=== PATIENT | female | born 1990 | race Caucasian/White ===

== ENCOUNTER 2016-03-01 17:39 | Emergency (ER) | payer MEDICAID ==
[~2016-03-01] VITALS: Ht 160 cm; Wt 56.0 kg
[2016-03-01 17:48] VITALS: BP 110/56; PULSE 68; RESP 16; TEMP 98.7; O2SAT 98
--- NOTE | 2016-03-01 18:20 | PD ---
Physical Exam Time Seen by Provider: 18:17 Narrative 26 YEAR OLD FEMALE WHO STATES SHE IS 13 WEEKS GESTATION PRESENTS TO ED FOR EVALUATION OF CRAMPING IN HER EPIGASTRIC AREA THAT BEGAN AROUND 5PM TODAY. RATES PAIN 7/10. NO N/V. NO FEVER OR CHILLS. NO VAGINAL BLEEDING OR DISCHARGE. PT SEES DR CRUZ. PT HAS NOT FELT BABY MOVE. PT WITH DECREASED U/O TODAY. THINKS SHE MIGHT BE DEHYDRATED. PT STATES SHE IS RH+ Data Data Last Documented VS Vital Signs Date Time Temp Pulse Resp B/P Pulse Ox O2 Delivery O2 Flow Rate FiO2 03/01/16 17:48 98.7 68 16 110/56 98 Room Air Orders Urinalysis - C+S If Indicated (03/01/16 18:20) Complete Blood Count With Diff (03/01/16 18:20) Comprehensive Metabolic Panel (03/01/16 18:20) Beta Hcg (Quant/Titer) (03/01/16 18:20) Lipase (03/01/16 18:20) Labs Laboratory Tests Test 03/01/16 03/01/16 18:25 18:40 Urine Color LIGHT-YELLOW Urine Turbidity HAZY Urine pH 6.0 Urine Specific [place] 1.006 Urine Protein NEG mg/dL Urine Glucose (UA) NEG mg/dL Urine Ketones NEG mg/dL Urine Occult Blood NEG Urine Nitrite NEG Urine Bilirubin NEG Urine Urobilinogen LESS THAN 2.0 MG/DL Urine Leukocyte Esterase LARGE Urine RBC 2 /hpf Urine WBC 2 /hpf Urine Squamous Epithelial 7 /hpf Cells Urine Hyaline Casts 1 /lpf Microscopic Urinalysis Comment CULT NOT INDICATED White Blood Count 9.6 TH/MM3 Red Blood Count 4.56 MIL/MM3 Hemoglobin 13.4 GM/DL Hematocrit 39.3 % Mean Corpuscular Volume 86.2 FL Mean Corpuscular Hemoglobin 29.4 PG Mean Corpuscular Hemoglobin 34.1 % Concent Red Cell Distribution Width 13.3 % Platelet Count 205 TH/MM3 Mean Platelet Volume 8.3 FL Neutrophils (%) (Auto) 69.5 % Lymphocytes (%) (Auto) 21.2 % Monocytes (%) (Auto) 6.4 % Eosinophils (%) (Auto) 2.5 % Basophils (%) (Auto) 0.4 % Neutrophils # (Auto) 6.7 TH/MM3 Lymphocytes # (Auto) 2.0 TH/MM3 Monocytes # (Auto) 0.6 TH/MM3 Eosinophils # (Auto) 0.2 TH/MM3 Basophils # (Auto) 0.0 TH/MM3 CBC Comment DIFF FINAL Differential Comment Sodium Level 134 MEQ/L Potassium Level 3.6 MEQ/L Chloride Level 101 MEQ/L Carbon Dioxide Level 22.6 MEQ/L Anion Gap 10 MEQ/L Blood Urea Nitrogen 14 MG/DL Creatinine 0.54 MG/DL Estimat Glomerular Filtration 134 ML/MIN Rate Random Glucose 99 MG/DL Calcium Level 9.1 MG/DL Total Bilirubin 0.4 MG/DL Aspartate Amino Transf 14 U/L (AST/SGOT) Alanine Aminotransferase 18 U/L (ALT/SGPT) Alkaline Phosphatase 94 U/L Total Protein 7.5 GM/DL Albumin 3.5 GM/DL Lipase 182 U/L Human Chorionic Gonadotropin, [address] MIU/ML Quant MDM Medical Record Reviewed: Yes Supervised Visit with MARSHA: No Narrative Course PT APPEARS OVERALL WELL. VSS. WORKUP INITIATED IN TRIAGE. Scripts No Active Prescriptions or Reported Meds Condition: Stable Juju Joseph Mar 01, 2016 18:19
[2016-03-01 19:17] LABS: BLOOD, URINE NEG (NEG); COMMENT (UR) CULT NOT INDICATED; CULTURE IF INDICATED CULT NOT INDICATED; GLUCOSE,URINE NEG (NEG); HYALINE CAST, URINE 1 /lpf (RARE); KETONE, URINE NEG (NEG); NITRITE,URINE NEG (NEG); SQUAMOUS EPITHELIAL CELL URINE 7 /hpf (0-5); URINE COLOR LIGHT-YELLOW (YELLW/STRAW)
[2016-03-01 19:25] LABS: AUTOMATED NEUTROPHIL # 6.7 TH/MM3 (1.8-7.7); BASOPHIL % 0.4 % (0.0-2.0); EOSINOPHIL # 0.2 TH/MM3 (0-0.4); EOSINOPHIL % 2.5 % (0.0-4.0); HEMATOCRIT 39.3 % (35.0-46.0); HEMO FLAGS DIFF FINAL; LYMPH % 21.2 % (9.0-44.0); MEAN CELL VOLUME 86.2 FL (80.0-100.0); MEAN CORPUSCULAR HEMOGLOBIN 29.4 PG (27.0-34.0); MEAN CORPUSCULAR HGB CONC 34.1 % (32.0-36.0); MONO % 6.4 % (0.0-8.0); NEUT % 69.5 % (16.0-70.0); PLATELET COUNT 205 TH/MM3 (150-450); RED BLOOD COUNT 4.56 MIL/MM3 (4.00-5.30); RED CELL DISTRIBUTION WIDTH 13.3 % (11.6-17.2); WHITE BLOOD COUNT 9.6 TH/MM3 (4.0-11.0)
[2016-03-01 19:46] LABS: ANION GAP 10 MEQ/L (5-15); AST (GOT) 14 U/L (15-37); BICARBONATE 22.6 MEQ/L (21.0-32.0); BLOOD UREA NITROGEN 14 MG/DL (7-18); CHLORIDE 101 MEQ/L (98-107); GLOMERULAR FILTRATION RATE 134 ML/MIN (>89); POTASSIUM 3.6 MEQ/L (3.5-5.1); SODIUM (NA) 134 MEQ/L (136-145)
[2016-03-01 20:04] LABS: ALKALINE PHOSPHATASE 94 U/L (45-117); ALT (GPT) 18 U/L (10-53); BETA HCG QUANT 50974 MIU/ML (0-5); TOTAL BILIRUBIN ADULT 0.4 MG/DL (0.2-1.0)
== END 2016-03-01 21:21 | disposition left against medical advice (07) ==
LOC: NED 17:39
DX: O26.91 Pregnancy related conditions, unspecified, first trimester (principal); Z3A.13 13 weeks gestation of pregnancy; R10.13 Epigastric pain
CPT/HCPCS: 80053; 81001; 83690; 84702; 85025; 99281

== ENCOUNTER 2016-03-03 08:58 | Emergency (ER) | payer MEDICAID ==
[~2016-03-03] VITALS: Ht 160 cm; Wt 55.0 kg
[2016-03-03 08:59] VITALS: BP 111/78; PULSE 91; RESP 16; TEMP 97.8; O2SAT 99
--- NOTE | 2016-03-03 09:36 | PD ---
HPI Chief Complaint: Cold / Flu Symptoms Time Seen by Provider: 09:36 Travel History International Travel<30 days: No Contact w/Intl Traveler<30days: No Traveled to known affect area: No History of Present Illness HPI 26-year-old female came to the emergency room with history of flulike symptoms. Says she has been coughing, body aches, nausea and vomiting,. Patient is 13 weeks . She says she has been cramping in her abdomen as well. No spotting. She has not been drinking water as much as she should. He had her OB checkup done last week when an ultrasound was done as well. She said she was told that the fetus was doing well. Vital signs are stable. FORMERLY [facility], [facility] Past Medical History Narrative Medical List of her past medical history is reviewed from the nursing note. ?: LMP: 12/02/15 Social History Tobacco Use: No Allergies-Medications (Allergen,Severity, Reaction): Coded Allergies: No Known Allergies (Verified , 03/03/16) Comments No known drug allergies. Reported Meds & Prescriptions Reported Meds & Active Scripts Active No Active Prescriptions or Reported Medications Narrative Medication List of her home medications reviewed from the nursing note. Review of Systems Except as stated in HPI: all other systems reviewed are Neg Physical Exam Narrative GENERAL: Awake, alert, moderate distress SKIN: Warm and dry. HEAD: Atraumatic. Normocephalic. EYES: Pupils equal and round. No scleral icterus. No injection or drainage. ENT: No nasal bleeding or discharge. Mucous membranes pink and moist. NECK: Trachea midline. No JVD. CARDIOVASCULAR: Regular rate and rhythm. No murmur appreciated. RESPIRATORY: No accessory muscle use. Clear to auscultation. Breath sounds equal bilaterally. GASTROINTESTINAL: Abdomen soft, non-tender, nondistended. Hepatic and splenic margins not palpable. MUSCULOSKELETAL: No obvious deformities. No clubbing. No cyanosis. No edema. NEUROLOGICAL: Awake and alert. No obvious cranial nerve deficits. Motor grossly within normal limits. Normal speech. PSYCHIATRIC: Appropriate mood and affect; insight and judgment normal. Data Data Last Documented VS Vital Signs Date Time Temp Pulse Resp B/P Pulse Ox O2 Delivery O2 Flow Rate FiO2 03/03/16 12:00 74 16 105/54 97 Room Air 03/03/16 08:59 97.8 Orders Complete Blood Count With Diff (03/03/16 09:38) Basic Metabolic Panel (Bmp) (03/03/16 09:38) Urinalysis - C+S If Indicated (03/03/16 09:38) Influenzae A/B Antigen (03/03/16 09:38) Blood Culture (03/03/16 09:38) Iv Access Insert/Monitor (03/03/16 09:38) Ecg Monitoring (03/03/16 09:38) Oximetry (03/03/16 09:38) Oxygen Administration (03/03/16 09:38) Sodium Chloride 0.9% Flush (Ns Flush) (03/03/16 09:45) Creatine Kinase (Cpk) (03/03/16 09:38) Sodium Chlor 0.9% 1000 Ml Inj (Ns 1000 M (03/03/16 09:45) Sodium Chlor 0.9% 1000 Ml Inj (Ns 1000 M (03/03/16 09:45) Lactic Acid (03/03/16 09:42) Acetaminophen (Tylenol) (03/03/16 09:45) Labs Laboratory Tests Test 03/03/16 03/03/16 03/03/16 10:00 10:10 10:16 Urine Color LIGHT-YELLOW Urine Turbidity HAZY Urine pH 6.0 Urine Specific [place] 1.008 Urine Protein NEG mg/dL Urine Glucose (UA) NEG mg/dL Urine Ketones NEG mg/dL Urine Occult Blood NEG Urine Nitrite NEG Urine Bilirubin NEG Urine Urobilinogen LESS THAN 2.0 MG/DL Urine Leukocyte Esterase SMALL Urine RBC 1 /hpf Urine WBC 1 /hpf Urine Squamous Epithelial 11 /hpf Cells Urine Bacteria RARE /hpf Microscopic Urinalysis Comment CULT NOT INDICATED White Blood Count 4.3 TH/MM3 Red Blood Count 4.70 MIL/MM3 Hemoglobin 13.9 GM/DL Hematocrit 39.9 % Mean Corpuscular Volume 84.8 FL Mean Corpuscular Hemoglobin 29.5 PG Mean Corpuscular Hemoglobin 34.9 % Concent Red Cell Distribution Width 13.7 % Platelet Count 155 TH/MM3 Mean Platelet Volume 8.1 FL Neutrophils (%) (Auto) 75.3 % Lymphocytes (%) (Auto) 12.2 % Monocytes (%) (Auto) 10.6 % Eosinophils (%) (Auto) 1.7 % Basophils (%) (Auto) 0.2 % Neutrophils # (Auto) 3.2 TH/MM3 Lymphocytes # (Auto) 0.5 TH/MM3 Monocytes # (Auto) 0.5 TH/MM3 Eosinophils # (Auto) 0.1 TH/MM3 Basophils # (Auto) 0.0 TH/MM3 CBC Comment DIFF FINAL Differential Comment Sodium Level 133 MEQ/L Potassium Level 3.9 MEQ/L Chloride Level 101 MEQ/L Carbon Dioxide Level 23.7 MEQ/L Anion Gap 8 MEQ/L Blood Urea Nitrogen 7 MG/DL Creatinine 0.60 MG/DL Estimat Glomerular Filtration 119 ML/MIN Rate Random Glucose 85 MG/DL Calcium Level 8.5 MG/DL Total Creatine Kinase 48 U/L Lactic Acid Level 0.7 mmol/L MDM Medical Decision Making Medical Screen Exam Complete: Yes Emergency Medical Condition: Yes Medical Record Reviewed: Yes Differential Diagnosis Influenza, sepsis, UTI Narrative Course 11:20 AM all the blood test results and urinalysis are back and within normal limit. Lactic acid and influenza is negative. Patient was given 1 L of IV fluid bolus. At this point I will discharge her and have her follow up with her OB. Procedures EKG Prior to Arrival: No Diagnosis Primary Impression: Viral illness Additional Impression: Qualified Code: Z3A.13 - 13 weeks gestation of Referrals: Primary Care Physician 2 days Additional Instructions: Please return to the ER if the condition worsens or any other new concerns. Drink lots of fluid especially like Gatorade. Follow-up with your OB in next couple days. Med/Other Pt SpecificInfo: No Change to Meds Scripts No Active Prescriptions or Reported Meds Disposition: 01 DISCHARGE HOME Condition: Prashanth Gutiérrez MD Mar 03, 2016 09:36 Condition: Prashanth Gutiérrez MD Mar 03, 2016 09:36
[2016-03-03] MEDS ORDERED: ACETAMINOPHEN 325 MG TAB PO ONE (09:45)
[2016-03-03] MEDS ORDERED: SODIUM CHLOR 0.9% 1000 ML INJ 1,000 ML IV ONE ×2 (09:45)
[2016-03-03] MEDS ORDERED: SODIUM CHLORIDE 0.9% FLUSH 5 ML FLUSH IVF PRN (09:45)
[2016-03-03 10:50] LABS: AUTOMATED NEUTROPHIL # 3.2 TH/MM3 (1.8-7.7); BASOPHIL % 0.2 % (0.0-2.0); EOSINOPHIL # 0.1 TH/MM3 (0-0.4); EOSINOPHIL % 1.7 % (0.0-4.0); HEMATOCRIT 39.9 % (35.0-46.0); HEMO FLAGS DIFF FINAL; LYMPH % 12.2 % (9.0-44.0); LYMPHOCYTE # 0.5 TH/MM3 (1.0-4.8); MEAN CELL VOLUME 84.8 FL (80.0-100.0); MEAN CORPUSCULAR HEMOGLOBIN 29.5 PG (27.0-34.0); MEAN CORPUSCULAR HGB CONC 34.9 % (32.0-36.0); MONO % 10.6 % (0.0-8.0); NEUT % 75.3 % (16.0-70.0); PLATELET COUNT 155 TH/MM3 (150-450); RED CELL DISTRIBUTION WIDTH 13.7 % (11.6-17.2); WHITE BLOOD COUNT 4.3 TH/MM3 (4.0-11.0)
[2016-03-03 10:50] LABS: BACTERIA, URINE RARE /hpf; BLOOD, URINE NEG (NEG); GLUCOSE,URINE NEG (NEG); KETONE, URINE NEG (NEG); NITRITE,URINE NEG (NEG); SQUAMOUS EPITHELIAL CELL URINE 11 /hpf (0-5); URINE COLOR LIGHT-YELLOW (YELLW/STRAW)
[2016-03-03 10:53] LABS: COMMENT (UR) CULT NOT INDICATED; CULTURE IF INDICATED CULT NOT INDICATED
[2016-03-03 10:58] LABS: BICARBONATE 23.7 MEQ/L (21.0-32.0); POTASSIUM 3.9 MEQ/L (3.5-5.1)
[2016-03-03 12:00] VITALS: BP 105/54; PULSE 74; RESP 16; O2SAT 97
== END 2016-03-03 12:10 | disposition home or self-care (01) ==
LOC: NEPC 08:58
DX: O26.92 Pregnancy related conditions, unspecified, second trimester (principal); B34.9 Viral infection, unspecified; Z3A.13 13 weeks gestation of pregnancy
CPT/HCPCS: 80048; 81001; 82550; 83605; 85025; 87040; 87205; 87804; 96360; 99284; J7030

== ENCOUNTER → 2016-07-05 | Outpatient (CLI) | payer MEDICAID | LOC: HPND 09:54 | PROVIDERS: ATTEND Obstetrics & Gynecology | DX: O35.8XX0 Maternal care for other (suspected) fetal abnormality and damage, not applicable or unspecified (principal); O44.40 Low lying placenta NOS or without hemorrhage, unspecified trimester; Z3A.00 Weeks of gestation of pregnancy not specified | CPT/HCPCS: 76811; 76817 ==

== ENCOUNTER 2016-07-27 08:12 | Emergency (ER) | payer MEDICAID ==
[2016-07-27] VITALS (11 sets, daily range): PULSE 58–78
[2016-07-27 09:10] LABS: BLOOD, URINE NEG (NEG); COMMENT (UR) CULT NOT INDICATED; CULTURE IF INDICATED CULT NOT INDICATED; GLUCOSE,URINE TRACE mg/dL (NEG); KETONE, URINE NEG (NEG); MUCUS URINE FEW /lpf (OCC); NITRITE,URINE NEG (NEG); SQUAMOUS EPITHELIAL CELL URINE 2 /hpf (0-5); URINE COLOR LIGHT-YELLOW (YELLW/STRAW)
--- NOTE | 2016-07-27 11:07 | MB ---
cc: Sarah CRUZ DATE OF CONSULTATION 07/27/2016 HISTORY OF PRESENT ILLNESS This is a 26-year-old white female para 3-0-0-3 whose last menstrual period and early ultrasound put her at 32 weeks and six days. She awoke this morning and when she got out of bed she noticed she was having some sharp back pain and left lower quadrant pain. She denies any vaginal bleeding, constipation, micturition problems. She came to the emergency room for evaluation. All her other babies were born at term. She did mow the lawn two days ago. She denies any contractions, leakage of fluid or vaginal bleeding. PAST OB HISTORY She is para 3-0-0-3. She had three term deliveries without difficulty. PAST GYNECOLOGIC HISTORY She has ascus on her Pap. We are going to repeat that . PAST SURGICAL HISTORY Remarkable for tonsillectomy as a child. 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 She is two swabs collected. SOCIAL HISTORY She is a never smoker. She is . She does not drink alcohol or take drugs. FAMILY HISTORY Remarkable for high blood pressure. ALLERGIES NO KNOWN DRUG ALLERGIES. MEDICATIONS Her current medications are vitamins one p.o. q. Day. REVIEW OF SYSTEMS She denies headaches, scotoma. She denies any shortness of breath, coughing, chronic cough, upper respiratory infection. She denies any chest pressure or pain. She reports good movement. She has no constipation, diarrhea or mucus in her stools. Her micturition pattern is normal without any dysuria or hematuria. PHYSICAL EXAM This is a well-developed, well-nourished female laying comfortably in bed. VITAL SIGNS: Her blood pressure is 120/59, pulse is 76. She is afebrile. HEENT: Normocephalic, atraumatic. NECK: Supple. Trachea is in the midline. There is no thyromegaly or adenopathy. CHEST: Clear to auscultation. HEART: The heart has regular rate and rhythm without murmur. ABDOMEN: The abdomen is soft and nontender. The fundus is nontender. The left lower quadrant over the round ligament is +1 to +2 tender. There is no rebound. Bowel sounds are normal. BACK: She has some paraspinal muscle tenderness bilaterally, left more than right. There is no CVA tenderness. EXTREMITIES: There is no clubbing, cyanosis, edema. There are no cords. LABORATORY WORKUP Her urinalysis is pending. ASSESSMENT/PLAN 1. Musculoskeletal: Left lower quadrant and back pain. Advised her to take it easy. I have offered her some muscle relaxants and Tylenol. The pain has pretty much resolved at this point. She does not even want the Tylenol I will hydrate her and monitor the baby and make sure we have a reactive strip. 2. Low-lying placenta. Her placenta was 20 mm away from the os a month ago. We will repeat that. 3. MRSA carrier. She has had both swabs collected and will address that when she goes into labor. 4. Ascus on Pap. We will repeat her Pap . R. MD JEANNINE Palmer/SANDRA /9:00 AM /10:56 AM
== END 2016-07-27 11:24 | disposition home or self-care (01) ==
LOC: HOBED 08:12
DX: O26.93 Pregnancy related conditions, unspecified, third trimester (principal); M54.5 Low back pain; O44.43 Low lying placenta NOS or without hemorrhage, third trimester; Z22.322 Carrier or suspected carrier of Methicillin resistant Staphylococcus aureus; Z3A.32 32 weeks gestation of pregnancy
CPT/HCPCS: 81001; 99282

== ENCOUNTER → 2016-08-08 | Outpatient (CLI) | payer MEDICAID | LOC: HPND 12:52 | PROVIDERS: ATTEND Obstetrics & Gynecology | DX: O44.43 Low lying placenta NOS or without hemorrhage, third trimester (principal); Z3A.34 34 weeks gestation of pregnancy | CPT/HCPCS: 76816; 76817 ==

== ENCOUNTER 2016-09-08 06:02 | Inpatient (IN) | payer MEDICAID ==
[2016-09-08] VITALS (18 sets, daily range): BP systolic 102–131; BP diastolic 61–85; PULSE 58–92; RESP 14–18; TEMP 97.8–98.2
[~2016-09-08] VITALS: Ht 160 cm; Wt 74.4 kg
[2016-09-08] MEDS ORDERED: MINERAL OIL 10 ML VIAL TOPICAL PRN (06:30)
[2016-09-08] MEDS ORDERED: LIDOCAINE HCL 1% 50 ML VIAL INFIL PRN (06:30)
[2016-09-08] MEDS ORDERED: OXYTOCIN 30 UNITS 500ML PREMIX IV ONE (06:30)
[2016-09-08] MEDS ORDERED: CITRIC ACID-SODIUM CITRATE LIQ 30 ML UDC PO SCH (06:45)
[2016-09-08] MEDS ORDERED: NS 500 ML BOLUS IV PRN (06:45)
[2016-09-08] MEDS ORDERED: ONDANSETRON HCL 4 MG/2 ML VIAL IV PRN (06:45)
[2016-09-08] MEDS ORDERED: LACTATED RINGER'S 1000 ML BOLUS IV PRN (06:45)
[2016-09-08] MEDS ORDERED: LIDOCAINE HCL 1% 50 ML VIAL I-DERMAL PRN (06:45)
[2016-09-08] MEDS ORDERED: LACTATED RINGER'S 1000 ML IV SCH (06:45)
[2016-09-08] MEDS ORDERED: NS 1000 ML IV PRN (06:45)
[2016-09-08 07:11] LABS: BLOOD, URINE NEG (NEG); COMMENT (UR) CULT NOT INDICATED; CULTURE IF INDICATED CULT NOT INDICATED; GLUCOSE,URINE NEG (NEG); KETONE, URINE NEG (NEG); MUCUS URINE FEW /lpf (OCC); NITRITE,URINE NEG (NEG); PH, URINE 6.5 (5.0-8.5); SQUAMOUS EPITHELIAL CELL URINE <1 /hpf (0-5); URINE COLOR LIGHT-YELLOW (YELLW/STRAW)
[2016-09-08 07:13] LABS: AUTOMATED NEUTROPHIL # 7.1 TH/MM3 (1.8-7.7); BASOPHIL % 0.3 % (0.0-2.0); EOSINOPHIL # 0.2 TH/MM3 (0-0.4); EOSINOPHIL % 1.8 % (0.0-4.0); HEMATOCRIT 34.5 % (35.0-46.0); HEMO FLAGS DIFF FINAL; LYMPH % 21.2 % (9.0-44.0); LYMPHOCYTE # 2.2 TH/MM3 (1.0-4.8); MEAN CELL VOLUME 86.5 FL (80.0-100.0); MEAN CORPUSCULAR HEMOGLOBIN 29.6 PG (27.0-34.0); MEAN CORPUSCULAR HGB CONC 34.2 % (32.0-36.0); MONO % 6.9 % (0.0-8.0); NEUT % 69.8 % (16.0-70.0); PLATELET COUNT 194 TH/MM3 (150-450); RED BLOOD COUNT 3.99 MIL/MM3 (4.00-5.30); RED CELL DISTRIBUTION WIDTH 12.8 % (11.6-17.2); WHITE BLOOD COUNT 10.2 TH/MM3 (4.0-11.0)
[2016-09-08] MEDS ORDERED: PENICILLIN G POT 5,000,000 UNITS/NS 100 ML (Mini-Bag Plus) IV ONE ×2 (07:30)
--- NOTE | 2016-09-08 11:22 | PD.OB.DELI ---
Delivery Date: Sep 08, 2016 Anesthesia: None Episiotomy: None Vaginal Delivery: Normal Presentation: Occiput anterior Nuchal Cord: None Delayed cord clamping (45 sec): Yes Infant: Female One Minute : 7 Five Minute : 9 Weight: 8/4 Placenta: Spontaneous delivery, Intact, 3 vessel cord Laceration: No lacerations Estimated blood loss: 300 Additional Information precip delivery of Abriella Delivered by Dr Archuleta Small periurethral tear not bleeding Sarah Cannon MD Sep 08, 2016 11:22
[2016-09-08] MEDS ORDERED: PENICILLIN G POT 2,500,000 UNITS/NS 100 ML IV SCH ×2 (11:30)
[2016-09-08] MEDS ORDERED: OXYTOCIN 30 UNITS-500ML PREMIX 500 ML IV ONE (11:30)
[2016-09-08] MEDS ORDERED: DOCUSATE SODIUM 50 MG/SENNA 8.6 MG TAB PO PRN (11:30)
[2016-09-08] MEDS ORDERED: WITCH HAZEL 50%/GLYCERIN 12.5% 40 PAD JAR TOPICAL PRN (11:30)
[2016-09-08] MEDS ORDERED: ALUMINUM/MAGNESIUM/SIMETH 30 ML CUP PO PRN (11:30)
[2016-09-08] MEDS ORDERED: SODIUM CHLORIDE 0.9% FLUSH 10 ML FLUSH IV FLUSH PRN (11:30)
[2016-09-08] MEDS ORDERED: OXYTOCIN 30 UNITS-500ML PREMIX 500 ML IV SCH (11:30)
[2016-09-08] MEDS ORDERED: ONDANSETRON ODT 4 MG TAB PO PRN (11:30)
[2016-09-08] MEDS ORDERED: ZOLPIDEM TARTRATE 5 MG TAB PO PRN (11:30)
[2016-09-08] MEDS ORDERED: oxyCODONE/ACETAMINOPHEN 5 MG/325 MG TAB PO PRN ×2 (11:30)
[2016-09-08] MEDS ORDERED: IBUPROFEN 600 MG TAB PO PRN (11:30)
[2016-09-08] MEDS ORDERED: KETOROLAC TROMETHAMINE 30 MG/ML (IVP) VIAL IV PUSH ONE (11:30)
[2016-09-08] MEDS ORDERED: BENZOCAINE 20% TOPICAL SPRAY 60 ML CAN TOPICAL PRN (11:30)
[2016-09-08] MEDS ORDERED: ACETAMINOPHEN 325 MG TAB PO PRN (11:30)
--- NOTE | 2016-09-08 12:26 | HHI.HP ---
HPI Chief Complaint term iup for induction Date Seen: Sep 08, 2016 Travel History International Travel<30 Days: No Contact w/Intl Traveler<30Days: No Known Affected Area: No History of Present Illness HPI pt 26 year old female at 39 weeks for induction of labor. sve 3 +c. she denies regular contraction, bleeding or leaking. + movement. GBS + Para: 3 : 4 Miscarriage: 0 : 0 History Past Medical History Narrative Medical HS OF MRSA (TWO NEGATIVE NASAL SWABS OBTAINED WITH ) PAP ASCUS 2016 Medical History: Denies Significant Hx Obstetric History Obstetric History GBS + PARA 3 VAGINAL DELIVERIES Past Surgical History Narrative Surgical TONSILLECTOMY Family History Narrative Family History MOTHER INCREASED BP Social History Alcohol Use: No Tobacco Use: No Substance Abuse: No Allergies-Medications (Allergen,Severity, Reaction): Coded Allergies: No Known Allergies (Verified , 09/08/16) Home Meds No Active Prescriptions or Reported Meds Review of Systems Except as stated in HPI: all other systems reviewed are Neg Physical Exam Vital Signs Date Time Temp Pulse Resp B/P Pulse Ox O2 Delivery O2 Flow Rate FiO2 09/08/16 11:58 18 09/08/16 11:47 92 125/79 09/08/16 11:45 18 09/08/16 11:31 69 105/85 09/08/16 11:30 98.2 09/08/16 11:30 18 09/08/16 11:20 70 102/79 09/08/16 09:45 16 09/08/16 09:00 18 09/08/16 08:35 66 131/84 09/08/16 07:30 97.9 09/08/16 06:45 18 09/08/16 06:37 86 119/61 Narrative GENERAL: Well-nourished, well-developed patient. SKIN: Warm and dry. HEAD: Normocephalic and atraumatic. EYES: No scleral icterus. No injection or drainage. ENT: No nasal drainage noted. Mucous membranes pink. Airway patent. CARDIOVASCULAR: Regular rate and rhythm without murmurs, gallops, or rubs. RESPIRATORY: Breath sounds equal bilaterally. No accessory muscle use.. ABDOMEN/GI: Abdomen soft, non-tender, bowel sounds present, no rebound, GENITOURINARY: External Genitalia: intact and normal in appearance Cervix: POST Dilatation: 3 Membranes: [intact Uterine Contractions: [-] EXTREMITIES: No cyanosis or edema. NEUROLOGICAL: Awake and alert. Motor and sensory grossly within normal limits. Five out of 5 muscle strength in all muscle groups. Normal speech. Data Data Vital Signs Reviewed: Yes Orders Complete Blood Count With Diff (09/08/16 06:27) Hold Clot (09/08/16 06:27) Abo/Rh Blood Type (09/08/16 06:27) Urinalysis - C+S If Indicated (09/08/16 06:27) Resp Oxygen Non Rebreathe Mask (09/08/16 ) Lactated Ringer's 1000 Ml Inj (Lr 1000 M (09/08/16 06:45) Lactated Ringer's 1000 Ml Inj (Lr 1000 M (09/08/16 06:45) Sodium Chlorid 0.9% 500 Ml Inj (Ns 500 M (09/08/16 06:45) Sodium Chlor 0.9% 1000 Ml Inj (Ns 1000 M (09/08/16 06:45) Lidocaine 1% Inj (50 Ml) (Xylocaine 1% I (09/08/16 06:45) Citric Acid-Sodium Citrate Liq (Bicitra (09/08/16 06:45) Ondansetron Inj (Zofran Inj) (09/08/16 06:45) Fentanyl Inj (Fentanyl Inj) (09/08/16 06:30) Fentanyl Inj (Fentanyl Inj) (09/08/16 06:30) Oxytocin 30 Units-500ml Premix (Pitocin (09/08/16 06:30) Lidocaine 1% Inj (50 Ml) (Xylocaine 1% I (09/08/16 06:30) Light Mineral Oil (Muri-Lube Oil) (09/08/16 06:30) Penicillin G Potassium Inj (Pfizerpen-G (09/08/16 07:30) Penicillin G Potassium Inj (Pfizerpen-G (09/08/16 11:30) Ketorolac Inj (Toradol Inj) (09/08/16 11:30) Oxytocin 30 Units-500ml Premix (Pitocin (09/08/16 11:30) Vital Signs (Adult) .QSHIFT (09/08/16 11:24) Activity Oob Ad Afsaneh (09/08/16 11:24) Ice / Cold Pack PRN (09/08/16 11:24) Discontinue Iv (09/08/16 11:24) Sitz Bath PRN (09/08/16 11:24) ^ Massage (09/08/16 11:24) ^ Rhogam (09/08/16 11:24) Urinary Catheter Management .PRN (09/08/16 11:24) Diet Regular Basic (09/08/16 Lunch) Sodium Chloride 0.9% Flush (Ns Flush) (09/08/16 21:00) Sodium Chloride 0.9% Flush (Ns Flush) (09/08/16 11:30) Oxytocin 30 Units-500ml Premix (Pitocin (09/08/16 11:30) Acetaminophen (Tylenol) (09/08/16 11:30) Ibuprofen (Motrin) (09/08/16 11:30) Oxycodone-Acetamin 5-325 Mg (Percocet (09/08/16 11:30) Oxycodone-Acetamin 5-325 Mg (Percocet (09/08/16 11:30) Benzocaine 20% Top Spr (Americaine 20% T (09/08/16 11:30) Witch Pily-Glycerin Pad (Tucks Pads) (09/08/16 11:30) Docusate Sodium-Senna (Yudith-Colace) (09/08/16 11:30) Zolpidem (Ambien) (09/08/16 11:30) Ukaxpha-Wmulc-Cupqrrn Inj (M-M-R Ii Inj) (09/08/16 16:00) Wxbo-Xyw-Zltkot (Booster) Inj (Boostrix (09/08/16 16:00) Al-Mag Hy-Si 40-40-4 Mg/Ml Liq (Mag-Al P (09/08/16 11:30) Ondansetron Odt (Zofran Odt) (09/08/16 11:30) Labs Laboratory Tests Test 09/08/16 09/08/16 06:20 06:40 Urine Color LIGHT-YELLOW Urine Turbidity CLEAR Urine pH 6.5 Urine Specific [place] 1.006 Urine Protein NEG Urine Glucose (UA) NEG Urine Ketones NEG Urine Occult Blood NEG Urine Nitrite NEG Urine Bilirubin NEG Urine Urobilinogen LESS THAN 2.0 Urine Leukocyte Esterase NEG Urine RBC LESS THAN 1 Urine WBC 1 Urine Squamous Epithelial <1 Cells Urine Mucus FEW Microscopic Urinalysis Comment CULT NOT INDICATED White Blood Count 10.2 Red Blood Count 3.99 Hemoglobin 11.8 Hematocrit 34.5 Mean Corpuscular Volume 86.5 Mean Corpuscular Hemoglobin 29.6 Mean Corpuscular Hemoglobin 34.2 Concent Red Cell Distribution Width 12.8 Platelet Count 194 Mean Platelet Volume 8.3 Neutrophils (%) (Auto) 69.8 Lymphocytes (%) (Auto) 21.2 Monocytes (%) (Auto) 6.9 Eosinophils (%) (Auto) 1.8 Basophils (%) (Auto) 0.3 Neutrophils # (Auto) 7.1 Lymphocytes # (Auto) 2.2 Monocytes # (Auto) 0.7 Eosinophils # (Auto) 0.2 Basophils # (Auto) 0.0 CBC Comment DIFF FINAL Differential Comment Blood Type A POSITIVE Band and Hold Assessment/Plan Problem List: (1) Term Plan: INDUCTION OF LABOR Assessment and Plan 39 WEEK IUP AROM PITOCIN INDUCTION TREATMENT OF GBS PLANNING FOR Discharge Planning IN 1-2 DAYS Attending Attestation PT SEEN WITH Georgette Webster Sep 08, 2016 12:26
[2016-09-08] MEDS ORDERED: DIPHTH/TETANUS/ACEL PERTUSSIS (BOOSTER) 0.5 ML VIAL/PFS IM ONE (16:00)
[2016-09-08] MEDS ORDERED: MEASLES, MUMPS, RUBELLA VACCINE 0.5 ML VIAL SQ ONE (16:00)
[2016-09-09 08:00] VITALS: BP 106/65; PULSE 70; RESP 16; TEMP 98
[2016-09-09] MEDS: SODIUM CHLORIDE 0.9% FLUSH 10 ML FLUSH IV FLUSH SCH (08:38)
--- NOTE | 2016-09-09 11:08 | HHI.OB ---
Subjective Post Day: 1 Remarks no complaints, desires discharge today Objective Vitals/I&O Vital Signs Date Time Temp Pulse Resp B/P Pulse Ox O2 Delivery O2 Flow Rate FiO2 09/09/16 08:00 98.0 70 16 09/09/16 08:00 106/65 09/08/16 19:33 98.2 16 09/08/16 19:33 71 115/67 09/08/16 15:00 97.8 14 09/08/16 15:00 60 112/68 09/08/16 13:06 67 110/67 09/08/16 12:31 63 110/71 09/08/16 12:15 58 122/77 09/08/16 12:15 18 09/08/16 12:00 61 120/85 09/08/16 11:58 18 09/08/16 11:47 92 125/79 09/08/16 11:45 18 09/08/16 11:31 69 105/85 09/08/16 11:30 98.2 09/08/16 11:30 18 09/08/16 11:20 70 102/79 Objective Remarks GENERAL: Well-nourished, well-developed patient. CARDIOVASCULAR: Regular rate and rhythm without murmurs, gallops, or rubs. RESPIRATORY: Breath sounds equal bilaterally. No accessory muscle use. ABDOMEN/GI: Abdomen soft, non-tender. Fundus: Firm, non-tender at umbilicus. GENITOURINARY: Light to moderate bleeding. EXTREMITIES: No cyanosis or edema, non-tender, without signs of DVT. Medications and IVs Current Medications Medications (Trade) Dose Ordered Sig/Eusebia Route Start Time Stop Time Status Last Admin (NS Flush) 2 ml BID IV FLUSH 09/08/16 21:00 (NS Flush) 2 ml UNSCH PRN IV FLUSH 09/08/16 11:30 (Tylenol) 650 mg Q4H PRN PO 09/08/16 11:30 (Motrin) 600 mg Q6H PRN PO 09/08/16 11:30 (Percocet 5-325 Mg) 1 tab Q4H PRN PO 09/08/16 11:30 (Percocet 5-325 Mg) 2 tab Q4H PRN PO 09/08/16 11:30 (Americaine 20% Top Spr) 1 spray Q4H PRN TOPICAL 09/08/16 11:30 (Tucks Pads) 1 applic QID PRN TOPICAL 09/08/16 11:30 (Yudith-Colace) 2 tab Q12H PRN PO 09/08/16 11:30 (Ambien) 5 mg HS PRN PO 09/08/16 11:30 (Mag-Al Plus Susp Liq) 15 ml Q8H PRN PO 09/08/16 11:30 (Zofran Odt) 4 mg Q6H PRN PO 09/08/16 11:30 Assessment/Plan Problem List: (1) Term Plan: INDUCTION OF LABOR (2) Vaginal delivery Assessment and Plan s/p PPD #1 Discharge Planning routine Attending Attestation pt seen by Elisha Momin MD Sep 09, 2016 11:08
[2016-09-09] MEDS ORDERED: IBUP-232 PO (11:09)
--- NOTE | 2016-09-09 11:09 | HHI.DCPOC ---
Discharge Care Plan Your Health Problems Are: Pelvic pain Report Symptoms to Your Doctor -Temperature above 100.5 degrees -Redness, of incision or excessive or foul smelling drainage -Unusual pain or calf pain -Increased vaginal bleeding -Painful or difficulty urinating -Feelings of extreme sadness or anxiety after 2 weeks Goals to Promote Your Health * To prevent worsening of your condition and complications * To maintain your health at the optimal level Directions to Meet Your Goals Take your medications as prescribed Follow your dietary instruction Follow activity as directed Ensure plenty of rest for recovery Drink fluids for hydration Keep your appointments as scheduled Take your immunizations and boosters as scheduled If your symptoms worsen call your PCP, if no PCP go to Urgent Care Center or Emergency Room Smoking is Dangerous to Your Health. Avoid second hand smoke Call the 24-hour crisis hotline for domestic abuse at Elisha Davies MD Sep 09, 2016 11:09
[2016-09-09 20:06] VITALS: BP 128/72; PULSE 76; RESP 16; TEMP 98.5
[2016-09-10 08:00] VITALS: BP 111/61; PULSE 80; RESP 18; TEMP 98.4
[2016-09-10] MEDS: SODIUM CHLORIDE 0.9% FLUSH 10 ML FLUSH IV FLUSH SCH (09:00)
--- NOTE | 2016-09-10 09:52 | HHI.OB ---
Subjective Post Day: 2 Remarks no complaints Objective Vitals/I&O Vital Signs Date Time Temp Pulse Resp B/P Pulse Ox O2 Delivery O2 Flow Rate FiO2 09/10/16 08:00 111/61 09/10/16 08:00 98.4 80 18 09/09/16 20:06 98.5 76 16 128/72 Objective Remarks GENERAL: Well-nourished, well-developed patient. CARDIOVASCULAR: Regular rate and rhythm without murmurs, gallops, or rubs. RESPIRATORY: Breath sounds equal bilaterally. No accessory muscle use. ABDOMEN/GI: Abdomen soft, non-tender. Fundus: Firm, non-tender at umbilicus. GENITOURINARY: Light to moderate bleeding. EXTREMITIES: No cyanosis or edema, non-tender, without signs of DVT. Medications and IVs Current Medications Medications (Trade) Dose Ordered Sig/Eusebia Route Start Time Stop Time Status Last Admin (NS Flush) 2 ml BID IV FLUSH 09/08/16 21:00 (NS Flush) 2 ml UNSCH PRN IV FLUSH 09/08/16 11:30 (Tylenol) 650 mg Q4H PRN PO 09/08/16 11:30 (Motrin) 600 mg Q6H PRN PO 09/08/16 11:30 (Percocet 5-325 Mg) 1 tab Q4H PRN PO 09/08/16 11:30 (Percocet 5-325 Mg) 2 tab Q4H PRN PO 09/08/16 11:30 (Americaine 20% Top Spr) 1 spray Q4H PRN TOPICAL 09/08/16 11:30 (Tucks Pads) 1 applic QID PRN TOPICAL 09/08/16 11:30 (Yudith-Colace) 2 tab Q12H PRN PO 09/08/16 11:30 (Ambien) 5 mg HS PRN PO 09/08/16 11:30 (Mag-Al Plus Susp Liq) 15 ml Q8H PRN PO 09/08/16 11:30 (Zofran Odt) 4 mg Q6H PRN PO 09/08/16 11:30 Assessment/Plan Problem List: (1) Term Plan: INDUCTION OF LABOR (2) Vaginal delivery Assessment and Plan s/p PPD #2 Discharge Planning routine Attending Attestation pt seen by Elisha Momin MD Sep 10, 2016 09:51
== END 2016-09-10 12:10 | disposition home or self-care (01) | DRG 775 ==
LOC: H2EB 06:02 → H1EA 14:38
PROVIDERS: ADMIT Obstetrics & Gynecology; ATTEND Obstetrics & Gynecology
PROC: 10E0XZZ Delivery of Products of Conception, External Approach (ICD-10-PCS; principal; 2016-09-08)
PROC: 10907ZC Drainage of Amniotic Fluid, Therapeutic from Products of Conception, Via Natural or Artificial Opening (ICD-10-PCS; 2016-09-08)
PROC: 3E033VJ Introduction of Other Hormone into Peripheral Vein, Percutaneous Approach (ICD-10-PCS; 2016-09-08)
DX: O99.824 Streptococcus B carrier state complicating childbirth (principal); O71.82 Other specified trauma to perineum and vulva; O62.3 Precipitate labor; Z37.0 Single live birth; Z86.14 Personal history of Methicillin resistant Staphylococcus aureus infection; Z3A.39 39 weeks gestation of pregnancy
CPT/HCPCS: 59025; 81001; 85025; 90715; J1885; J2540; J2590; J7120